=== PATIENT | female | born 2000 | race Caucasian/White ===

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

== ENCOUNTER → 2023-10-03 | Outpatient (REF) | LOC: M EMP 12:36 | PROVIDERS: ATTEND Family Medicine | DX: Z11.52 Encounter for screening for COVID-19 (principal) ==

== ENCOUNTER 2023-10-14 02:05 | Inpatient (IN) | payer OTHER ==
[~2023-10-14] VITALS: Ht 160 cm; Wt 86.3 kg
[2023-10-14 02:55] LABS: HEMATOCRIT 43.2 % (36.0-47.0); HEMOGLOBIN 14.1 g/dl (12.0-15.5); MEAN CORPUSCULAR HGB CONC 32.6 g/dl (32.0-36.5); MEAN CORPUSCULAR VOLUME 88.9 fl (80.0-96.0); PLATELET COUNT, AUTOMATED 573 10^3/uL (150-450); RED BLOOD COUNT 4.86 10^6/uL (4.00-5.40); WHITE BLOOD COUNT 14.5 10^3/uL (4.0-10.0)
[2023-10-14 03:17] LABS: AMPHETAMINES LEVEL URINE NEGATIVE (NEGATIVE); BARBITURATES URINE NEGATIVE (NEGATIVE); BENZODIAZEPINES URINE NEGATIVE (NEGATIVE); CANNABINOIDS URINE NEGATIVE (NEGATIVE); COCAINE METABOLITE URINE NEGATIVE (NEGATIVE); METHADONE URINE NEGATIVE (NEGATIVE); OPIATES URINE NEGATIVE (NEGATIVE); PHENCYCLIDINE URINE NEGATIVE (NEGATIVE)
[2023-10-14 03:20] LABS: ETHYL ALCOHOL (ETHANOL) 0.004 % (0.000-0.010)
[2023-10-14 03:21] LABS: ALBUMIN 3.9 G/DL (3.2-5.2); ALKALINE PHOSPHATASE 67 U/L (46-116); ALT/SGPT 30 U/L (7.0-40); AST/SGOT 12 U/L (<34); BILIRUBIN,DIRECT 0.1 MG/DL (<0.4); BILIRUBIN,TOTAL 0.3 MG/DL (0.3-1.2); BLOOD UREA NITROGEN 13 MG/DL (9-23); CALCIUM LEVEL 9.2 MG/DL (8.5-10.1); CARBON DIOXIDE LEVEL 28 MMOL/L (20-31); CHLORIDE LEVEL 105 MMOL/L (98-107); CREATININE FOR GFR 0.63 MG/DL (0.55-1.30); GLOMERULAR FILTRATION RATE > 60.0 (>60); GLUCOSE, FASTING 97 MG/DL (60-100); SALICYLATE LEVEL < 3.0 MG/DL (<30); SODIUM LEVEL 137 MMOL/L (136-145); TOTAL PROTEIN 7.7 G/DL (5.7-8.2)
[2023-10-14 03:24] LABS: THYROID STIMULATING HORMONE 2.377 uIU/ML (0.55-4.78)
[2023-10-14] MEDS ORDERED: MED REC IN PROGRESS XX SCH (08:50)
[2023-10-14] MEDS ORDERED: HOME MED LIST COMPLETE! XX SCH (09:05)
[2023-10-14] MEDS ORDERED: traZODone 50 MG TAB PO PRN (10:35)
[2023-10-14] MEDS ORDERED: ACETAMINOPHEN TAB 650MG DOSE (2X325MG) PO PRN (10:35)
[2023-10-14] MEDS ORDERED: diphenhydrAMINE 25MG CAP PO PRN (10:35)
[2023-10-14] MEDS ORDERED: IBUPROFEN 400MG TAB PO PRN (10:35)
[2023-10-14] MEDS ORDERED: MOM 30ML SUSPENSION UDC PO PRN (10:35)
[2023-10-14] MEDS ORDERED: MAALOX 30 ML SUSP *UDC PO PRN (10:35)
[2023-10-14 13:12] VITALS: BP 125/69; TEMP 97; O2SAT 96
[2023-10-15 06:47] VITALS: BP 123/58; TEMP 97.1; O2SAT 99
[2023-10-15] MEDS: ESCITALOPRAM OXALATE 10 MG TAB (LEXAPRO) PO SCH (09:50)
[2023-10-15] MEDS ORDERED: NICOTINE 14 MG/24 HR TRANSDERMAL TD PRN (13:30)
[2023-10-15 17:26] VITALS: BP 100/65; TEMP 98
[2023-10-16 06:54] VITALS: BP 133/69; TEMP 97.5; O2SAT 98
[2023-10-16] MEDS: ESCITALOPRAM OXALATE 10 MG TAB (LEXAPRO) PO SCH (08:37)
[2023-10-16] MEDS ORDERED: LEXA1TAB PO (08:55)
[2023-10-16] MEDS ORDERED: HYDR-3363 PO (08:55)
[2023-10-16 17:08] VITALS: BP 130/72; TEMP 98.2; O2SAT 100
[2023-10-17 06:39] VITALS: BP 118/77; TEMP 98.1; O2SAT 98
[2023-10-17] MEDS: ESCITALOPRAM OXALATE 10 MG TAB (LEXAPRO) PO SCH (08:18)
== END 2023-10-17 11:23 | disposition home or self-care (01) | DRG 754 ==
LOC: M ED 02:05 → M ED INP 10:56 → M PSY 13:08
PROVIDERS: ADMIT Student in an Organized Health Care Education/Training Program; ATTEND Student in an Organized Health Care Education/Training Program
DX: F32.A Depression, unspecified (principal); F41.1 Generalized anxiety disorder; F43.10 Post-traumatic stress disorder, unspecified; F17.290 Nicotine dependence, other tobacco product, uncomplicated; R45.851 Suicidal ideations; K21.9 Gastro-esophageal reflux disease without esophagitis; Z91.51 Personal history of suicidal behavior; R73.03 Prediabetes; M41.9 Scoliosis, unspecified; Z81.8 Family history of other mental and behavioral disorders; Z91.018 Allergy to other foods; Z91.011 Allergy to milk products; Z20.822 Contact with and (suspected) exposure to COVID-19

== ENCOUNTER → 2024-03-30 | Outpatient (REF) ==
[~2024-03-30] MED LIST: HYDR-3363 PO; LEXA1TAB PO
== END ==
LOC: M EMP 14:10
PROVIDERS: ATTEND Family Medicine
DX: Z11.52 Encounter for screening for COVID-19 (principal)

== ENCOUNTER 2024-04-24 23:56 | Emergency (ER) | payer MEDICAID, OTHER, SELFPAY ==
[~2024-04-24] VITALS: Ht 162.6 cm; Wt 86.0 kg
[2024-04-25 00:57] LABS: BASO # 0.1 10^3/uL (0.0-0.2); BASO % 0.5 % (0.0-1.0); EOS # 0.2 10^3/uL (0.0-0.5); EOS % 1.8 % (0.0-3.0); HEMATOCRIT 39.6 % (36.0-47.0); HEMOGLOBIN 13.1 g/dl (12.0-15.5); LYMPH # 3.2 10^3/uL (1.5-5.0); LYMPH % 24.4 % (24.0-44.0); MEAN CORPUSCULAR HEMOGLOBIN 29.1 pg (27.0-33.0); MEAN CORPUSCULAR HGB CONC 33.1 g/dl (32.0-36.5); MONO # 0.8 10^3/uL (0.0-0.8); MONO % 5.8 % (2.0-8.0); NEUTROPHILS # 8.8 10^3/uL (1.5-8.5); NEUTROPHILS % 67.2 % (36.0-66.0); PLATELET COUNT, AUTOMATED 497 10^3/uL (150-450)
[2024-04-25 01:18] LABS: LIPASE 44 U/L (12-53)
[2024-04-25 01:20] LABS: ALBUMIN 3.7 G/DL (3.2-5.2); ALKALINE PHOSPHATASE 74 U/L (46-116); ALT/SGPT 21 U/L (7.0-40); AST/SGOT < 8 U/L (<34); BILIRUBIN,DIRECT < 0.1 MG/DL (<0.4); BILIRUBIN,TOTAL 0.3 MG/DL (0.3-1.2); BLOOD UREA NITROGEN 13 MG/DL (9-23); CALCIUM LEVEL 9.4 MG/DL (8.5-10.1); CARBON DIOXIDE LEVEL 28 MMOL/L (20-31); CHLORIDE LEVEL 107 MMOL/L (98-107); CREATININE FOR GFR 0.64 MG/DL (0.55-1.30); GLOMERULAR FILTRATION RATE > 60.0 (>60); GLUCOSE, FASTING 115 MG/DL (60-100); HCG, SERUM QUALITATIVE NEGATIVE (NEGATIVE); SODIUM LEVEL 139 MMOL/L (136-145); TOTAL PROTEIN 7.4 G/DL (5.7-8.2)
[2024-04-25 02:14] LABS: Trichomonas vaginalis (AMP) NOT DETECTED (NEGATIVE)
[2024-04-25 02:39] LABS: GC DNA AMPLIFICATION NEGATIVE (NEGATIVE)
[2024-04-25] MEDS: ONDANSETRON 4MG 2ML VIAL IV ONE (03:23)
[2024-04-25] MEDS: KETOROLAC 30 MG/ML 1ML VIAL IV ONE (03:26)
[2024-04-25] MEDS ORDERED: ISOVUE-370 76% 100ML VIAL As Ordered ONE (03:31)
[2024-04-25] MEDS ORDERED: CEFP200T PO (05:18)
[2024-04-25 05:30] VITALS: BP 129/70; TEMP 98.9; O2SAT 98
[2024-04-25] MEDS: CEFDINIR 300 MG CAP (OMNICEF) PO ONE (05:36)
== END 2024-04-25 05:37 | disposition home or self-care (01) ==
LOC: M ED 23:56
DX: N10 Acute pyelonephritis (principal); R73.03 Prediabetes; Z79.899 Other long term (current) drug therapy; Z91.011 Allergy to milk products; Z91.018 Allergy to other foods
CPT/HCPCS: 74177; 80048; 80076; 81001; 83690; 84703; 85025; 87086; 87661; 87810; 87850; 96374; 96375; 99284; J1885; J2405; Q9967

== ENCOUNTER 2024-08-17 20:18 | Emergency (ER) | payer OTHER, SELFPAY ==
[~2024-08-17] VITALS: Ht 160 cm; Wt 92.7 kg
[~2024-08-17 20:18] MED LIST changes: +CEFP200T PO
[2024-08-17] MEDS: ACETAMINOPHEN 325 MG TAB PO ONE (22:52)
[2024-08-17 22:56] LABS: URINE PREG TEST NEGATIVE (NEGATIVE)
[2024-08-18 00:57] VITALS: BP 117/63; TEMP 97.6; O2SAT 96
== END 2024-08-18 01:05 | disposition short-term general hospital (02) ==
LOC: M ED 20:18
DX: S06.5X0A Traumatic subdural hemorrhage without loss of consciousness, initial encounter (principal); W22.8XXA Striking against or struck by other objects, initial encounter; Y92.239 Unspecified place in hospital as the place of occurrence of the external cause; Y99.0 Civilian activity done for income or pay; Y93.89 Activity, other specified